=== PATIENT | male | born 1990 | race Caucasian/White ===

== ENCOUNTER 2018-06-07 09:15 | Emergency (ER) | payer BC ==
[2018-06-07 10:06] VITALS: BP 124/72
--- NOTE | 2018-06-07 10:35 | UC ---
Nausea/Vomiting/Diarrhea HPI - HPI Summary HPI Summary: 27-year-old male comes in with a chief complaint of intermittent abdominal pain constipation diarrhea since February 2018. Currently in the last week and a half patient started having difficult time having a bowel movement. He took some milk of magnesia and now he's having diarrhea. Has colicky abdominal discomfort that moves around in his abdomen. No fevers or chills no vomiting. No prior abdominal surgeries. No dysuria. When the stool happens most recently its fairly loose. Has not seen any blood in the stool. No recent changes in diet. - History of Current Complaint Chief Complaint: UCGI Stated Complaint: DIGESTIVE COMPLAINT Time Seen by Provider: 06/07/18 10:14 Pain Intensity: 2 - Allergies/Home Medications Allergies/Adverse Reactions: Allergies Allergy/AdvReac Type Severity Reaction Status Date / Time Sulfa (Sulfonamide Allergy Rash Verified 06/07/18 10:00 Antibiotics) Home Medications: Home Medications Levothyroxine TAB* [Synthroid TAB*] 112 mcg PO DAILY 06/07/18 [History Confirmed 06/07/18] PMH/Surg Hx/FS Hx/Imm Hx Previously Healthy: Yes Endocrine History: Hypothyroidism - Surgical History Surgical History: Yes Surgery Procedure, Year, and Place: adnoidectomy. undesceded testicle - Family History Known Family History: Positive: Non-Contributory - Social History Alcohol Use: Occasionally Substance Use Type: None Smoking Status (MU): Never Smoked Tobacco Review of Systems All Other Systems Reviewed And Are Negative: Yes Constitutional: Positive: Negative Skin: Positive: Negative Eyes: Positive: Negative ENT: Positive: Negative Respiratory: Positive: Negative Cardiovascular: Positive: Negative Gastrointestinal: Positive: Abdominal Pain, Diarrhea, Other - SEE HPI Genitourinary: Positive: Negative Motor: Positive: Negative Neurovascular: Positive: Negative Musculoskeletal: Positive: Negative Neurological: Positive: Negative Psychological: Positive: Negative Is Patient Immunocompromised?: No Physical Exam Triage Information Reviewed: Yes Appearance: Well-Appearing, No Pain Distress, Well-Nourished Vital Signs: Initial Vital Signs Temp 98.5 F 06/07/18 10:01 Pulse 63 06/07/18 10:01 Resp 16 06/07/18 10:01 BP 124/72 06/07/18 10:01 Pulse Ox 100 06/07/18 10:01 Vital Signs Reviewed: Yes Eye Exam: Normal Eyes: Positive: Conjunctiva Clear Neck exam: Normal Neck: Positive: Supple Respiratory: Positive: Lungs clear, Normal breath sounds, No respiratory distress Cardiovascular: Positive: RRR Abdomen Description: Positive: Nontender, Soft. Negative: CVA Tenderness (R), CVA Tenderness (L) Bowel Sounds: Positive: Present Musculoskeletal Exam: Normal Musculoskeletal: Positive: Strength Intact, ROM Intact Neurological Exam: Normal Neurological: Positive: Alert, Muscle Tone Normal Psychological Exam: Normal Psychological: Positive: Age Appropriate Behavior Skin Exam: Normal Naus/Vom/Diarrhea Course/Dx - Course Course Of Treatment: Patient's symptoms are most consistent with irritable bowel syndrome. Today on examination his abdomen is soft and nontender. He's had no fevers. Patient has a scheduled appointment with his primary care doctor on June 22, 2018. Plan at this time is to use either Metamucil or Citrucel to help normalize his bowels. We discussed if he got worse with fevers chills pain he should go the emergency department for further evaluation. We discussed lab work and CT exam and the patient declined those today. - Differential Dx/Diagnosis Provider Diagnosis: Constipation, Diarrhea, Abdominal pain Condition At Discharge: Stable Discharge - Sign-Out/Discharge Documenting (check all that apply): Patient Departure All imaging exams completed and their final reports reviewed: No Studies - Discharge Plan Condition: Stable Disposition: HOME Patient Education Materials: Irritable Bowel Syndrome (ED), Constipation (ED), Acute Diarrhea (ED), Acute Abdominal Pain (ED) Referrals: Malou Byrne PA [Primary Care Provider] - Additional Instructions: FOLLOW UP WITH YOUR DOCTOR ON 06/22/18 SCHEDULED. TRY OVER THE COUNTER METHYCELLULOSE (CITRUCEL) OR PSYLLIUM (METAMUCIL). GO TO THE EMERGENCY DEPARTMENT FOR ANY WORSENING OF YOUR CONDITION; PAIN, FEVER , YOU FEEL ILL OR QUESTIONS OR CONCERNS. - Billing Disposition and Condition Condition: STABLE Disposition: Home
== END 2018-06-07 10:42 | disposition home or self-care (01) ==
LOC: UCCORT 09:15
DX: R10.9 Unspecified abdominal pain (principal); K59.00 Constipation, unspecified; R19.7 Diarrhea, unspecified; E03.9 Hypothyroidism, unspecified; Z88.2 Allergy status to sulfonamides; Z79.899 Other long term (current) drug therapy
CPT/HCPCS: 99201; G0463